=== PATIENT | male | born 1995 | race African-American/Black ===

== ENCOUNTER 2017-06-04 18:21 | Emergency (ER) | payer BC ==
[~2017-06-04] VITALS: Ht 172.7 cm; Wt 94.3 kg
[2017-06-04 18:25] VITALS: Ht 172.7 cm; Wt 94.3 kg
--- NOTE | 2017-06-04 19:02 | EMERGENCY ROOM VISIT NOTE ---
History Report prepared by Lukasz: Lisa Pierce Under the Supervision of: Dr. Alan Garcia M.D. First contact with patient: 18:39 Chief Complaint: RECTAL PAIN Stated Complaint: EXTREME PAIN IN THE RECTAL AREA Nursing Triage Summary: rectal pain with blood on tissue Happens on a regular basis. History of Present Illness The patient is a 22 year old male who presents to the Emergency Room with complaints of intermittent rectal pain and rectal bleeding which is has been worsening for the past week. The patient notes that he normally has these symptoms but they usually resolve within a couple days. He states that this pain is different his baseline because the pain has become more severe and has not resided like it normally does. He notes that it has been causing him a difficult time to walk and sit. The patient denies ever seeing a physician for these symptoms before. He denies any no abdominal pain. Source of History: patient Onset: a week ago Position: other (rectal) Symptom Intensity: severe Quality: other (pain and bleeding) Timing: intermittent Modifying Factors (Worsening): movement Associated Symptoms: No abdominal pain Review of Systems See HPI for pertinent positives and negatives. A total of ten systems were reviewed and were otherwise negative. Past Medical & Surgical Medical Problems: (1) No Known Active Medical Problems Family History No pertinent family history stated. Social History Smoking Status: Never Smoker Housing Status: lives with roommate Occupation Status: [employer] student Current/Historical Medications Scheduled Docusate Sodium (Docusate Sodium), 1 TAB PO DAILY Hnenihwpg-Lrgjkureolxbz-Nmodsy (Preparation H), 1 APPLN TOP QID Allergies Coded Allergies: No Known Allergies (Unverified , 06/04/17) Physical Exam Vital Signs Date Time Temp Pulse Resp B/P (MAP) Pulse Ox O2 Delivery O2 Flow Rate FiO2 06/04/17 19:29 36.8 71 18 133/73 99 06/04/17 19:25 71 18 133/73 99 Room Air 06/04/17 18:25 36.8 92 16 150/82 100 Room Air Physical Exam GENERAL: Awake, alert, well-appearing, in no distress HENT: Normocephalic, atraumatic. Oropharynx unremarkable. EYES: Normal conjunctiva. Sclera non-icteric. NECK: Supple. No nuchal rigidity. FROM. No JVD. RESPIRATORY: Clear to auscultation. CARDIAC: Regular rate, normal rhythm. Extremities warm and well perfused. Pulses equal. ABDOMEN: Soft, non-distended. No tenderness to palpation. No rebound or guarding. No masses. RECTAL: Small external hemorrhoid at the 6 o'clock position, no perianal fluctuance or induration, no fissures. MUSCULOSKELETAL: Chest examination reveals no tenderness. The back is symmetrical on inspection without obvious abnormality. There is no CVA tenderness to palpation. No joint edema. LOWER EXTREMITIES: Calves are equal size bilaterally and non-tender. No edema. No discoloration. NEURO: Normal sensorium. No sensory or motor deficits noted. SKIN: No rash or jaundice noted. Medical Decision & Procedures ED Course 1844: The patient was evaluated in room C5. A complete history and physical exam was performed. 1924: I reevaluated the patient. Discussed results and discharge instructions: He verbalized understanding and agreement. The patient is ready for discharge. Medical Decision I reviewed the patient's past medical history, medications, and the nursing notes as described above. Differential diagnosis: hemorrhoid, abscess, fissure. The patient is a 22-year-old gentleman presents emergency Department with 1 week of rectal pain and intermittent red blood on toilet paper. History of present illness. The patient reports that this has happened many times in the past but resolves on its own. And has never been evaluated for this. On arrival the patient is well-appearing in no acute distress afebrile with stable vital signs. His rectal exam is notable for a small external nonthrombosed hemorrhoid at the 6 oclock position. There is round stool that is slightly guaiac positive but no gross blood or melena. No intracranial areas of fluctuance or perianal areas of fluctuance to suggest abscess . No anal fissure. Given the patient has not tried first-line supportive care will have the patient use Preparation H, sitz bath, stool softener and follow up with [facility]. Findings and plan for follow-up reviewed with patient. Patient agreeable and d/c'd per discharge instructions. Medication Reconcilliation Current Medication List: was personally reviewed by me Blood Pressure Screening Patient's blood pressure: Elevated blood pressure Blood pressure disposition: Elevated BP felt to be situational Impression Primary Impression: External hemorrhoid Scribe Attestation The scribe's documentation has been prepared under my direction and personally reviewed by me in its entirety. I confirm that the note above accurately reflects all work, treatment, procedures, and medical decision making performed by me. Departure Information Dispostion Home / Self-Care Prescriptions Epkzfmpxr-Kmpbhsctfeeas-Nxhchl (PREPARATION H) 1 Cre Cre 1 APPLN TOP QID for 7 Days, #1 TUBE Prov: Alan Garcia M.D. 06/04/17 Docusate Sodium (DOCUSATE SODIUM) 100 Mg Tab 1 TAB PO DAILY for 7 Days, #7 TABS Prov: Alan Garcia M.D. 06/04/17 Referrals No Doctor, Assigned (PCP) Forms HOME CARE DOCUMENTATION FORM, IMPORTANT VISIT INFORMATION, WORK / SCHOOL INSTRUCTIONS Patient Instructions ED Hemorrhoids, [facility] Additional Instructions Please follow up with the student health clinic in the next 1-3 days for re- evaluation. You have an external hemorrhoid that will take time to resolve. Use stool softener, Preparation H and directed. Sitz bath 4 times daily. Otherwise, your exam did not show signs of an emergent condition at this time. Return to the emergency department for worsening symptoms as described in the accompanying instructions.
[2017-06-04] MEDS ORDERED: PRAMCRE2 TOP (19:19)
[2017-06-04] MEDS ORDERED: DOCU1TAB6 PO (19:19)
[2017-06-04 19:29] VITALS: BP 133/73; PULSE 71; TEMP 36.8; O2SAT 99
== END 2017-06-04 19:30 | disposition home or self-care (01) ==
LOC: C.EDB 18:22 → C.EDC 19:30
DX: K64.4 Residual hemorrhoidal skin tags (principal)